=== PATIENT | female | born 1940 | race Caucasian/White ===

== ENCOUNTER 2016-07-01 19:07 | Emergency (ER) | payer MEDICARE, OTHER | END 2016-07-01 22:52 | disposition home or self-care (01) | LOC: FER 19:07 | DX: S86.912A Strain of unspecified muscle(s) and tendon(s) at lower leg level, left leg, initial encounter (principal); S76.012A Strain of muscle, fascia and tendon of left hip, initial encounter; Z88.2 Allergy status to sulfonamides; Z88.5 Allergy status to narcotic agent; Z88.6 Allergy status to analgesic agent; Z88.8 Allergy status to other drugs, medicaments and biological substances; W01.0XXA Fall on same level from slipping, tripping and stumbling without subsequent striking against object, initial encounter; Y92.009 Unspecified place in unspecified non-institutional (private) residence as the place of occurrence of the external cause | CPT/HCPCS: 73502; 73564; J1030; J2270 ==

== ENCOUNTER 2020-08-29 05:42 | Emergency (ER) | payer MEDICARE, OTHER ==
[~2020-08-29 05:42] MED LIST: LAMISIL AT12 G2 TOP; MACROBID100 MG PO
[2020-08-29 06:09] LABS: BASOPHIL 0.5 % (0-2); EOSINOPHIL 5.8 % (0-7); HCT 39.1 % (37.0-47.0); HGB 12.5 g/dl (12.5-16.0); LYMPHOCYTE 43.7 % (15-48); MCH 31.3 pg (25.0-31.0); MONOCYTE 5.9 % (0-12); MPV 10.8 fL (6.0-9.5); NEUTROPHIL 43.6 % (41-80); NRBC 0; PLT 222 K/uL (150-400); RBC 3.99 M/uL (4.20-5.40); WBC 10.8 K/uL (4.0-10.5)
[2020-08-29 06:49] LABS: ALBUMIN 3.6 g/dL (3.4-5.0); ALKALINE PHOSHATASE 112 U/L (46-116); ALT 22 U/L (14-59); AST 17 U/L (15-37); BILIRUBIN - TOTAL 0.3 mg/dL (0.2-1.0); BUN 23 mg/dL (7-18); BUN/CREAT RATIO (CALC) 19.2 RATIO; C-REACTIVE PROTEIN <0.20 mg/dL (<=0.90); CHLORIDE 105 mmol/L (98-107); CO2 (BICARBONATE) 22 mmol/L (21-32); GLUCOSE 154 mg/dL (74-106); POTASSIUM 4.1 mmol/L (3.5-5.1); TOTAL PROTEIN 7.6 g/dL (6.4-8.2)
[2020-08-29] MEDS ORDERED: ANTIVERT25 MG PO (11:32)
[2020-08-29] MEDS ORDERED: AMOXICILLIN500 MG PO (11:32)
[2020-08-29] MEDS ORDERED: ONDANSETRON ODT4 MG PO (11:32)
== END 2020-08-29 12:45 | disposition home or self-care (01) ==
LOC: FER 05:42
PROVIDERS: Emergency Medicine Emergency Medical Services
DX: H83.02 Labyrinthitis, left ear (principal); H81.10 Benign paroxysmal vertigo, unspecified ear; E11.9 Type 2 diabetes mellitus without complications; I10 Essential (primary) hypertension; Z79.84 Long term (current) use of oral hypoglycemic drugs; Z88.2 Allergy status to sulfonamides; Z88.5 Allergy status to narcotic agent; Z88.6 Allergy status to analgesic agent; Z88.8 Allergy status to other drugs, medicaments and biological substances; Z88.1 Allergy status to other antibiotic agents
CPT/HCPCS: 36415; 70450; 71045; 80053; 84484; 85025; 86140; 93005; J3360; J7030

== ENCOUNTER 2020-09-17 09:10 | Emergency (ER) | payer MEDICARE, OTHER ==
[~2020-09-17 09:10] MED LIST changes: +AMOXICILLIN500 MG PO; +ANTIVERT25 MG PO; +ONDANSETRON ODT4 MG PO
[2020-09-17 10:18] LABS: BASOPHIL 0.7 % (0-2); EOSINOPHIL 2.7 % (0-7); HCT 36.8 % (37.0-47.0); HGB 11.8 g/dl (12.5-16.0); LYMPHOCYTE 22.4 % (15-48); MCHC 32.1 g/dL (32.0-36.0); MCV 96.6 fL (78.0-100.0); MONOCYTE 5.3 % (0-12); MPV 10.5 fL (6.0-9.5); NEUTROPHIL 68.3 % (41-80); NRBC 0; PLT 201 K/uL (150-400); RBC 3.81 M/uL (4.20-5.40); RDW 13.1 % (11.5-14.0); WBC 8.5 K/uL (4.0-10.5)
[2020-09-17 10:46] LABS: ALBUMIN 3.4 g/dL (3.4-5.0); BILIRUBIN - TOTAL 0.3 mg/dL (0.2-1.0); BUN/CREAT RATIO (CALC) 14.1 RATIO; CREATININE 1.35 mg/dL (0.51-0.95); GLOBULIN (CALCULATION) 3.7 g/dL; POTASSIUM 4.3 mmol/L (3.5-5.1); TOTAL PROTEIN 7.1 g/dL (6.4-8.2)
[2020-09-17] MEDS ORDERED: VENTOLIN HFA IN18 GM INH (11:17)
== END 2020-09-17 11:18 | disposition home or self-care (01) ==
LOC: FER 09:10
PROVIDERS: Emergency Medicine
DX: J45.909 Unspecified asthma, uncomplicated (principal); I10 Essential (primary) hypertension; E11.9 Type 2 diabetes mellitus without complications; Z79.84 Long term (current) use of oral hypoglycemic drugs
CPT/HCPCS: 36415; 71045; 80053; 83880; 85025; 93005

== ENCOUNTER 2021-03-12 16:17 | Inpatient (IN) | payer MEDICARE, OTHER ==
[~2021-03-12] VITALS: Ht 162.6 cm; Wt 114.3 kg
[~2021-03-12 16:17] MED LIST changes: +VENTOLIN HFA IN18 GM INH
[2021-03-12 18:02] LABS: BASOPHIL 0.3 % (0-2); HCT 37.4 % (37.0-47.0); HGB 12.1 g/dl (12.5-16.0); LYMPHOCYTE 17.5 % (15-48); MCH 30.6 pg (25.0-31.0); MCHC 32.4 g/dL (32.0-36.0); MCV 94.7 fL (78.0-100.0); MONOCYTE 7.3 % (0-12); MPV 10.4 fL (6.0-9.5); NEUTROPHIL 72.3 % (41-80); NRBC 0; PLT 278 K/uL (150-400); RBC 3.95 M/uL (4.20-5.40); RDW 13.2 % (11.5-14.0); WBC 12.7 K/uL (4.0-10.5)
[2021-03-12 18:30] LABS: BUN/CREAT RATIO (CALC) 18.8 RATIO; CREATININE 2.77 mg/dL (0.51-0.95); POTASSIUM 3.4 mmol/L (3.5-5.1)
[2021-03-13] MEDS ORDERED: SINGULAIR10 MG PO (01:34)
[2021-03-13] MEDS ORDERED: ZYRTEC10 M3 PO (01:35)
[2021-03-13] MEDS ORDERED: VITAMIN D21250 MCG PO (01:36)
[2021-03-13] MEDS ORDERED: COZAAR100 MG PO (01:37)
[2021-03-13] MEDS ORDERED: ESOMEPRAZOLE MA40 MG PO (01:37)
[2021-03-13] MEDS ORDERED: LASIX40 MG PO (01:38)
[2021-03-13] MEDS ORDERED: ASPIRIN EC81 MG PO (01:38)
[2021-03-13] MEDS ORDERED: CARDURA2 MG PO (01:38)
[2021-03-13] MEDS ORDERED: EVISTA60 MG PO (01:39)
[2021-03-13] MEDS ORDERED: ZOCOR20 MG PO (01:39)
[2021-03-13] MEDS ORDERED: GLUCOTROL XL5 MG PO (01:39)
[2021-03-13 06:43] LABS: BASOPHIL 0.3 % (0-2); EOSINOPHIL 4.4 % (0-7); HCT 34.8 % (37.0-47.0); HGB 10.9 g/dl (12.5-16.0); LYMPHOCYTE 26.1 % (15-48); MCH 30.4 pg (25.0-31.0); MCHC 31.3 g/dL (32.0-36.0); MCV 96.9 fL (78.0-100.0); MONOCYTE 7.4 % (0-12); MPV 10.4 fL (6.0-9.5); NEUTROPHIL 61.4 % (41-80); NRBC 0; PLT 277 K/uL (150-400); RBC 3.59 M/uL (4.20-5.40); RDW 13.2 % (11.5-14.0); WBC 11.5 K/uL (4.0-10.5)
[2021-03-13 07:04] LABS: BUN/CREAT RATIO (CALC) 19.1 RATIO; CREATININE 2.41 mg/dL (0.51-0.95); POTASSIUM 3.5 mmol/L (3.5-5.1)
[2021-03-13 20:33] LABS: URINE CREATININE 90.46 mg/dL (29.00-226.00); URINE TOTAL PROTEIN-RANDOM 13.6 mg/dL (<11.9)
[2021-03-14 07:28] LABS: BILIRUBIN NEGATIVE (NEGATIVE); BLOOD NEGATIVE Ery/uL (NEGATIVE); CLARITY CLEAR (CLEAR); COLOR YELLOW (YELLOW); GLUCOSE (U) NORMAL (NORMAL); LEUKOCYTES 1+ Leu/uL (NEGATIVE); NITRITE POSITIVE (NEGATIVE); PROTEIN NEGATIVE (NEGATIVE); UROBILINOGEN 0.2 mg/dL (0.2-1.0)
[2021-03-14 07:34] LABS: BACTERIA 2+
[2021-03-14 07:40] LABS: BASOPHIL 0.5 % (0-2); HCT 31.3 % (37.0-47.0); HGB 9.8 g/dl (12.5-16.0); MCH 30.4 pg (25.0-31.0); MCHC 31.3 g/dL (32.0-36.0); MCV 97.2 fL (78.0-100.0); MONOCYTE 7.6 % (0-12); MPV 10.2 fL (6.0-9.5); NEUTROPHIL 61.2 % (41-80); NRBC 0; PLT 234 K/uL (150-400); RBC 3.22 M/uL (4.20-5.40); RDW 13.2 % (11.5-14.0); WBC 8.9 K/uL (4.0-10.5)
[2021-03-14 07:56] LABS: IRON % SATURATION 27.6 %SAT (20-50)
[2021-03-14 07:58] LABS: BUN/CREAT RATIO (CALC) 22.2 RATIO; CREATININE 1.71 mg/dL (0.51-0.95); MAGNESIUM 1.8 mg/dL (1.8-2.4); PHOSPHORUS 3.4 mg/dL (2.6-4.7); POTASSIUM 3.3 mmol/L (3.5-5.1)
--- NOTE | 2021-03-14 13:48 | NUR ---
03/14 Ms. Balbuena lives alone. She has a cane, rw, and 3in1. [facility] is current and was notified of admission. Please notify [facility] at [phone] if patient discharges over the weekend.
[2021-03-15 06:24] LABS: BASOPHIL 0.6 % (0-2); EOSINOPHIL 5.8 % (0-7); LYMPHOCYTE 24.5 % (15-48); MCH 31.1 pg (25.0-31.0); MCHC 32.3 g/dL (32.0-36.0); MCV 96.3 fL (78.0-100.0); MONOCYTE 7.9 % (0-12); MPV 10.6 fL (6.0-9.5); NEUTROPHIL 60.3 % (41-80); NRBC 0; PLT 248 K/uL (150-400); RBC 3.22 M/uL (4.20-5.40); RDW 13.2 % (11.5-14.0); WBC 8.5 K/uL (4.0-10.5)
[2021-03-15 06:50] LABS: BUN/CREAT RATIO (CALC) 19.4 RATIO; CREATININE 1.55 mg/dL (0.51-0.95); MAGNESIUM 1.6 mg/dL (1.8-2.4); POTASSIUM 3.8 mmol/L (3.5-5.1)
[2021-03-15] MEDS ORDERED: CEFDINIR300 MG PO ×2 (10:40→10:42)
[2021-03-15] MEDS ORDERED: REMEDY PHYTOPLE85 GM TOP ×2 (10:40→10:43)
== END 2021-03-15 13:34 | disposition home health service (06) | DRG 683 ==
LOC: FER 16:17 → FMS 22:21 → FER 22:21 → FMS 03-13 21:55
PROVIDERS: Emergency Medicine; Internal Medicine; Internal Medicine Nephrology; Nurse Practitioner; ADMIT Internal Medicine
DX: N17.9 Acute kidney failure, unspecified (principal); I13.0 Hypertensive heart and chronic kidney disease with heart failure and stage 1 through stage 4 chronic kidney disease, or unspecified chronic kidney disease; N39.0 Urinary tract infection, site not specified; N18.30 Chronic kidney disease, stage 3 unspecified; E86.9 Volume depletion, unspecified; I50.9 Heart failure, unspecified; Z20.822 Contact with and (suspected) exposure to COVID-19; E86.0 Dehydration; E11.22 Type 2 diabetes mellitus with diabetic chronic kidney disease; E83.42 Hypomagnesemia; E87.6 Hypokalemia; I95.9 Hypotension, unspecified; D50.9 Iron deficiency anemia, unspecified; J01.90 Acute sinusitis, unspecified; B37.2 Candidiasis of skin and nail; I89.0 Lymphedema, not elsewhere classified; M19.90 Unspecified osteoarthritis, unspecified site; Z90.49 Acquired absence of other specified parts of digestive tract; Z98.890 Other specified postprocedural states; Z82.3 Family history of stroke; Z82.49 Family history of ischemic heart disease and other diseases of the circulatory system; Z88.2 Allergy status to sulfonamides; Z88.5 Allergy status to narcotic agent; Z88.8 Allergy status to other drugs, medicaments and biological substances; Z88.1 Allergy status to other antibiotic agents; Z79.82 Long term (current) use of aspirin; Z79.899 Other long term (current) drug therapy; Z91.041 Radiographic dye allergy status; Z91.013 Allergy to seafood
CPT/HCPCS: 36415; 71045; 80048; 81001; 82570; 82728; 82962; 83540; 83550; 83605; 83735; 83880; 84100; 84145; 84156; 84484; 85025; 87076; 87088; 87186; 93005; J0696; J1644; J2916; J3475; J7030; J7120; U0002

== ENCOUNTER 2021-04-05 09:38 | Inpatient (IN) | payer MEDICARE, OTHER ==
[~2021-04-05] VITALS: Ht 162.6 cm; Wt 106.2 kg
[~2021-04-05 09:38] MED LIST changes: +ASPIRIN EC81 MG PO; +CARDURA2 MG PO; +CEFDINIR300 MG PO; +COZAAR100 MG PO; +ESOMEPRAZOLE MA40 MG PO; +EVISTA60 MG PO; +GLUCOTROL XL5 MG PO; +LASIX40 MG PO; +REMEDY PHYTOPLE85 GM TOP; +SINGULAIR10 MG PO; +VITAMIN D21250 MCG PO; +ZOCOR20 MG PO; +ZYRTEC10 M3 PO
[2021-04-05 13:08] LABS: BASOPHIL 0.3 % (0-2); EOSINOPHIL 0.2 % (0-7); HCT 37.1 % (37.0-47.0); LYMPHOCYTE 14.2 % (15-48); MCH 30.8 pg (25.0-31.0); MCHC 32.3 g/dL (32.0-36.0); MCV 95.1 fL (78.0-100.0); MONOCYTE 6.2 % (0-12); MPV 11.6 fL (6.0-9.5); NEUTROPHIL 78.6 % (41-80); NRBC 0; PLT 350 K/uL (150-400); RDW 13.9 % (11.5-14.0); WBC 14.3 K/uL (4.0-10.5)
[2021-04-05 13:18] LABS: BUN/CREAT RATIO (CALC) 20.3 RATIO; CREATININE 2.51 mg/dL (0.51-0.95); POTASSIUM 3.1 mmol/L (3.5-5.1)
[2021-04-05 14:24] LABS: BILIRUBIN 1+ mg/dL (NEGATIVE); BLOOD TRACE-INTACT Ery/uL (NEGATIVE); CLARITY CLEAR (CLEAR); COLOR YELLOW (YELLOW); GLUCOSE (U) NORMAL (NORMAL); LEUKOCYTES 1+ Leu/uL (NEGATIVE); NITRITE NEGATIVE (NEGATIVE); PROTEIN NEGATIVE (NEGATIVE); SPECIFIC GRAVITY >=1.030 (1.001-1.030); UROBILINOGEN 0.2 mg/dL (0.2-1.0)
[2021-04-05 14:41] LABS: BACTERIA 1+
[2021-04-05 15:13] LABS: CORONAVIRUS 2019 SARS-COV-2 NEGATIVE (NEGATIVE); INFLUENZA A NAA NEGATIVE (NEGATIVE)
[2021-04-05] MEDS ORDERED: GLIPIZIDE 5 MG (5 MG PO (18:08)
[2021-04-06 10:30] LABS: BASOPHIL 0.3 % (0-2); EOSINOPHIL 3.2 % (0-7); HCT 32.8 % (37.0-47.0); HGB 10.7 g/dl (12.5-16.0); LYMPHOCYTE 15.5 % (15-48); MCH 31.1 pg (25.0-31.0); MCHC 32.6 g/dL (32.0-36.0); MCV 95.3 fL (78.0-100.0); MONOCYTE 6.1 % (0-12); MPV 10.4 fL (6.0-9.5); NEUTROPHIL 74.2 % (41-80); NRBC 0; PLT 283 K/uL (150-400); RBC 3.44 M/uL (4.20-5.40); RDW 13.8 % (11.5-14.0); WBC 12.1 K/uL (4.0-10.5)
[2021-04-06 11:01] LABS: BUN/CREAT RATIO (CALC) 23.9 RATIO; CREATININE 1.97 mg/dL (0.51-0.95); POTASSIUM 3.2 mmol/L (3.5-5.1)
[2021-04-08 07:24] LABS: BASOPHIL 0.7 % (0-2); EOSINOPHIL 2.2 % (0-7); HCT 33.2 % (37.0-47.0); HGB 10.7 g/dl (12.5-16.0); LYMPHOCYTE 25.2 % (15-48); MCHC 32.2 g/dL (32.0-36.0); MCV 96.2 fL (78.0-100.0); MONOCYTE 4.7 % (0-12); MPV 10.3 fL (6.0-9.5); NEUTROPHIL 65.6 % (41-80); NRBC 0; PLT 304 K/uL (150-400); RBC 3.45 M/uL (4.20-5.40); WBC 9.2 K/uL (4.0-10.5)
[2021-04-08 07:54] LABS: ALBUMIN 2.1 g/dL (3.4-5.0); BILIRUBIN - TOTAL 0.3 mg/dL (0.2-1.0); BUN/CREAT RATIO (CALC) 23.5 RATIO; CREATININE 1.36 mg/dL (0.51-0.95); GLOBULIN (CALCULATION) 4.4 g/dL; POTASSIUM 3.1 mmol/L (3.5-5.1); TOTAL PROTEIN 6.5 g/dL (6.4-8.2)
--- NOTE | 2021-04-08 16:45 | NUR ---
04/08/21 Ms. Balbuena lives alone. She does not have children. She has a friend in [place] and several cousins who are her support system. Ms. Balbuena has a rw and cane. [facility] is current and have been notified of admission via [facility]. - Ms. Balbuena is requesting SNF for strenghtening and wound care. A referral has been made to [facility] per her choice. [facility] does not have an available bed.
[2021-04-09 07:17] LABS: HCT 33.8 % (37.0-47.0); HGB 10.7 g/dl (12.5-16.0); MCH 31.3 pg (25.0-31.0); MCHC 31.7 g/dL (32.0-36.0); MCV 98.8 fL (78.0-100.0); MPV 10.2 fL (6.0-9.5); RBC 3.42 M/uL (4.20-5.40); RDW 14.3 % (11.5-14.0); WBC 10.4 K/uL (4.0-10.5)
[2021-04-09 07:37] LABS: BUN/CREAT RATIO (CALC) 20.7 RATIO; CREATININE 1.4 mg/dL (0.51-0.95); POTASSIUM 4.3 mmol/L (3.5-5.1)
--- NOTE | 2021-04-09 16:54 | NUR ---
04/09/ Adrianakirk Degroot at [facility] was informed of patient's transfer to [facility]. [facility] will follow at [facility].
== END 2021-04-09 19:20 | disposition other institution (70) | DRG 871 ==
LOC: FER 09:38 → FMS 14:08
PROVIDERS: Nurse Practitioner Acute Care; Nurse Practitioner Family; ADMIT Internal Medicine
DX: B37.7 Candidal sepsis (principal); I50.23 Acute on chronic systolic (congestive) heart failure; N17.9 Acute kidney failure, unspecified; I13.0 Hypertensive heart and chronic kidney disease with heart failure and stage 1 through stage 4 chronic kidney disease, or unspecified chronic kidney disease; E87.2 Acidosis; L03.311 Cellulitis of abdominal wall; L03.314 Cellulitis of groin; Z68.41 Body mass index [BMI] 40.0-44.9, adult; B37.2 Candidiasis of skin and nail; R65.20 Severe sepsis without septic shock; Z20.822 Contact with and (suspected) exposure to COVID-19; N61.0 Mastitis without abscess; E87.6 Hypokalemia; N18.30 Chronic kidney disease, stage 3 unspecified; L89.322 Pressure ulcer of left buttock, stage 2; L89.312 Pressure ulcer of right buttock, stage 2; E11.649 Type 2 diabetes mellitus with hypoglycemia without coma; E78.5 Hyperlipidemia, unspecified; E66.01 Morbid (severe) obesity due to excess calories; L30.4 Erythema intertrigo; J45.909 Unspecified asthma, uncomplicated; E86.0 Dehydration; Z90.49 Acquired absence of other specified parts of digestive tract; Z98.890 Other specified postprocedural states; Z88.2 Allergy status to sulfonamides; Z88.5 Allergy status to narcotic agent; Z88.8 Allergy status to other drugs, medicaments and biological substances; Z88.1 Allergy status to other antibiotic agents
CPT/HCPCS: 36415; 71046; 80048; 80053; 80202; 81001; 83036; 83605; 85025; 87088; 93005; 97110; 97162; 97166; 97530; 97530-GP; 97535; 99284; G0378; J1650; J3370; J3480; J7030; J7050; U0002

== ENCOUNTER 2021-09-01 12:50 | Emergency (ER) | payer MEDICARE, OTHER ==
[~2021-09-01 12:50] MED LIST changes: +GLIPIZIDE 5 MG (5 MG PO
== END 2021-09-01 17:23 | disposition home or self-care (01) ==
LOC: FER 12:50
DX: T82.118A Breakdown (mechanical) of other cardiac electronic device, initial encounter (principal); Z88.1 Allergy status to other antibiotic agents; Z88.2 Allergy status to sulfonamides; Z88.5 Allergy status to narcotic agent; Z88.6 Allergy status to analgesic agent; Z88.8 Allergy status to other drugs, medicaments and biological substances; Y83.8 Other surgical procedures as the cause of abnormal reaction of the patient, or of later complication, without mention of misadventure at the time of the procedure
CPT/HCPCS: 93005